=== PATIENT | male | born 1980 | race Hispanic/Latino ===

== ENCOUNTER 2017-03-10 10:43 | Emergency (ER) | payer OTHER ==
[~2017-03-10] VITALS: Ht 182.9 cm; Wt 86.4 kg
[2017-03-10 10:55] VITALS: BP 129/69; PULSE 84; RESP 22; O2SAT 99
--- NOTE | 2017-03-10 11:17 | ED.REPORT ---
HPI-Back Pain Under 40 Date of Service Mar 10, 2017 ED Provider: History of Present Illness: putting cereal bowel away today. pain started, did some stretches, no help. no vomiting. pforte is primary care. uses takes ibuprofen tramadol and robaxin, recently started lisinopril. 02/11, no fall no injury hx of prior back pain. States has an appointment to see pforte. 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 Urine tox in the ER shows positive for meth, opiates and amphetamines 03/10/2017 Alcohol Use: Denies alcohol use Drug Use: In recovery Occupation live with children 14,12 and 8. work at [email or web address]. First work day is wednesday Ambulatory Status Independent Review of Systems Basic Review of Systems Eyes: Vision NL, No discharge Endocrine: No cold intolerance, No heat intolerance, No weight gain, No weight loss Allergy / Immune: No allergy Physical Exam Initial Vital Signs Vital Signs (First) Date Time Temp Pulse Resp B/P Pulse Ox O2 Delivery O2 Flow Rate FiO2 03/10/17 10:55 37.5 84 22 129/69 99 Room Air Initial VS: Reviewed, Vital signs normal Head / Eyes: Atraumatic, Normocephalic, PERRL ENT: Mucous membranes moist, Conjunctiva normal, No scleral icterus Neck: Supple, Non-tender, Full range of motion Respiratory: Breath sounds normal, Clear to auscultation, No respiratory distress Cardiovascular: Heart sounds normal, Intact distal pulses Abdomen / GI: Soft, Non-tender, No guarding, No rebound, No distention Lymphatic: No lymphadenopathy Extremities: Vascular intact, Neuro intact, No swelling, No tenderness Skin: Warm, Dry, No cyanosis Psychiatric: Mood/affect normal, Behavior normal, Normal thought content General/Constitutional: Awake, Alert, No acute distress, Well appearing, Well developed, Well hydrated, Well nourished, Cooperative, Not toxic appearing Back: Atraumatic, Inspection NL, Full range of motion, Painless range of motion Neurologic: Oriented X3, Speech NL, No motor deficits, No sensory deficits Respiratory / Chest: Atraumatic, Breath sounds NL, Breath sounds = bilat, No respiratory distress Cardiovascular: Heart rate NL, Regular rhythm, Heart sounds NL Lower Extremity / Pelvis / MS: Atraumatic, Inspection NL, Full range of motion , No swelling, Non-tender, No erythema, Neurologic intact, Vascular intact Interpretation & Diagnostics Lab Results Interpretation Lab Results Interpretation: Urine tox is p[ositive for meth, opiates and amphetamines 03/10/2017 Urine is clear, no sign of infection Re-Eval/Medical Decision Med Decision/Clinical Course 37 year old male presents with sudden onset of pain this am while puting away his cereal bowl. He reports doping stretches which were not helpful. Normally takes ibuprofen, robaxin and tramadol. Reports he has an appointment with [facility] as it has been some time since he had tramadol. Urine is clear no sign of infection. Exam and hx is reassuring. Patient reports his pain is now a 4/10. Encouraged movement. With excellent relief of pain, unlikely to be a spinal abscess. No sign of bladder infection. Patient continues to state he is in remission from drug use. Urine positive for meth, opiates and amphetamines Discharge & Departure Impression: Primary Impression: Low back pain Chronicity: acute Back pain laterality: left Sciatica presence: without sciatica Qualified Code: M54.5 - Low back pain Additional Impression: Drug abuse Disposition: Home Patient Instructions: Low Back Strain (ED) Additional Instructions: The exam and history is reassuring. The urine does not show any sign of infection. You have had excellent relief with the toradol injection. Please start the ketorolac pills to help. Use 10 mg up to 4 times a day as needed for discomfort. Do not stay in bed or sit in a chair for an extended period of time. Movement is good! Please follow with Dr. Brand if you feel you need tramadol. Robaxin is provided. Referrals: Jean Marie Brand MD (PCP) EDSupervising Provider for APC: Ceasar Ortiz MD copies to: Jean Marie Brand MD, Sue ARNP Mar 10, 2017 11:17
[2017-03-10 12:47] VITALS: BP 125/65; PULSE 88; O2SAT 98
[2017-03-11] MEDS ORDERED: CYCL5TAB PO (07:25)
[2017-03-11] MEDS ORDERED: IBUP800T28 PO (07:25)
== END 2017-03-10 12:45 | disposition home or self-care (01) ==
LOC: SED 11:43
DX: M54.5 Low back pain (principal); F19.10 Other psychoactive substance abuse, uncomplicated; I10 Essential (primary) hypertension; F17.200 Nicotine dependence, unspecified, uncomplicated
CPT/HCPCS: 96372; 99284; J1885

== ENCOUNTER 2017-03-11 05:22 | Emergency (ER) | payer OTHER ==
[~2017-03-11] VITALS: Ht 182.9 cm; Wt 86.4 kg
[2017-03-11 05:33] VITALS: BP 112/73; PULSE 85; RESP 24; O2SAT 99
--- NOTE | 2017-03-11 06:21 | ED.REPORT ---
HPI-Back Pain Under 40 Date of Service Mar 11, 2017 ED Provider: Ceasar Ortiz MD The patient is a 37 year old male with a history of lower back pain, HTN, and drug use presenting to the ED complaining of lower back spasms that began to "flare-up" yesterday when we was going to his car. The patient denies working out, heavy lifting, or bending over at the time of onset. He describes the pain as cramping and admits to feeling pain like this last year, although less severe. The patient admits to diaphoresis. The patient denies dysuria, hematuria , fever, nausea, vomiting, weakness, numbness or tingling in his legs, bowel or bladder incontinence, or saddle anesthesia. Patient was seen in the department for his symptoms yesterday and prescribed Robaxin with minimal relief. Nursing Notes Stated Complaint: LOW BACK PAIN Chief Complaint: Back Pain or Injury Nursing Notes Reviewed: Yes Allergies: Coded Allergies: No Known Allergies (Unverified , 03/10/17) Scheduled PRN Cyclobenzaprine (Cyclobenzaprine) 5 Mg Tablet 5 MG PO TID PRN PRN Spasm Ibuprofen (Ibuprofen) 800 Mg Tablet 800 MG PO TID PRN PRN For Pain General Time Seen by MD: 06:20 Chief Complaint Back pain Hx Obtained From: Patient Arrived By: Walk-in Sudden in Onset?: Yes Onset Occurred: Yesterday Symptom Duration: Since onset (flares up) Caused by: Spontaneous/no mechanism Quality: Aching, Cramping Associated with: Denies: Fever, Hematuria, Incontinence bladder, Nausea, Numbness both low ext, Tingling left lower ext, Tingling right lower ext, Vomiting, Weakness both lower ext Pertinent Negative: Pt denies other symptoms Recent Healthcare: Recent doctor visit Similar Sx Previous: Yes Past Medical History Past Medical History Reports: Hypertension Past Surgical History left knee Smoking History Current Every Day Smoker 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 Urine tox in the ER shows positive for meth, opiates and amphetamines 03/11/2017 Alcohol Use: Denies alcohol use Drug Use: In recovery, Meth Occupation live with children 14,12 and 8. work at [employer]. First work day is wednesday Ambulatory Status Independent Review of Systems -saddle anesthesia Constitutional: Denies: Fever GI: Denies: Nausea, Vomiting Male: Denies Dysuria, Denies Hematuria, Denies Incontinence Musculoskeletal: Reports: Back pain (lower back) Neurologic: Denies: Bladder dysfunction, Bowel dysfunction, Numbness (or tingling. ), Weakness Complete sys rev & neg: except as marked. Physical Exam Initial Vital Signs Vital Signs (First) Date Time Temp Pulse Resp B/P Pulse Ox O2 Delivery O2 Flow Rate FiO2 03/11/17 05:33 37.3 85 24 112/73 99 Room Air Initial VS: Reviewed, Vital signs normal Head / Eyes: Atraumatic, Normocephalic Neck: Supple, Full range of motion Respiratory: No respiratory distress Skin: Warm, Dry General/Constitutional: Awake, Alert Back: Atraumatic, No midline vertebral tend Left lower back tenderness, reproducable no spine tenderness straight leg raise positive 30 degrees Neurologic: Oriented X3, Speech NL Abdomen: Atraumatic, Soft, Non-tender Lower Extremity / Pelvis / MS: Atraumatic Upper Extremity / MS: Atraumatic Interpretation & Diagnostics Lab Results Interpretation Test 03/11/17 07:21 Hold Urine Received (Received) Lab Results Interpretation: Urine tox positive for amphetamines, methamphetamines, and opiates Re-Eval/Medical Decision Med Decision/Clinical Course 37-year-old male presenting with left lower back pain and spasms times several days. He was seen yesterday for similar. He was given Robaxin which she reports helped his symptoms for some time and then they recur when the medication wears off. He has no red flag symptoms. He denies any history of IV drug use. He has no neurological deficits. His pain is reproducible. He does have a positive straight leg raise. Possible sciatica versus musculoskeletal. Given no history of IV drug use and no midline tenderness and no systemic symptoms of infection and resolution with muscle relaxers have very low suspicion for epidural abscess. He felt much better with Toradol. Given the resolution in pain, will discharge home with NSAIDs and muscle relaxer. He will follow-up with his primary doctor. Return precautions given. Re-Evaluation/Progress : Time of Eval: 07:26 Re-Evaluation/Progress Note: Rechecked pt. Discussed plan for discharge with PCP F/U. Patient understands and agrees with plan. All questions addressed at this time. Counseled Regarding: Diagnosis, Lab results, Need for follow-up, When/why to return to ED Discharge & Departure Impression: Primary Impression: Musculoskeletal back pain Additional Impression: Sciatica Laterality: unspecified laterality Qualified Code: M54.30 - Sciatica, unspecified side Disposition: Home All VS Reviewed: Yes Condition: Stable Patient Instructions: Sciatica (ED) Additional Instructions: Thank you for entrusting us with your care today. We did not find a dangerous cause for your symptoms at this time. I believe your pain is due to a muscle injury and sciatica. Take Ibuprofen (up to 800mg every 8 hours) to reduce inflammation. Take Flexeril as prescribed at night to reduce muscle spasm. Do not take this with Robaxin. You make take this during the day as long as you do not drive. Do not drink alcohol with this medication. Follow up with your primary doctor for re-evaluation and to discuss the possibility of physical therapy. Return to the emergency department if you experience weakness, numbness, or tingling in your legs, fevers, vomiting, worsening pain, or any other new or concerning symptoms. Referrals: Jean Marie Brand MD (PCP) Fridaibe Attestation Portions of this note were transcribed by Fabiola Velasquez and Armani Zarate. I, Dr. Ortiz personally performed the history, physical exam and medical decision-making; I reviewed and confirmed the accuracy of the information in the transcribed note. Signed by: Masha Weiner, 03/11/2017 copies to: Jean Marie Brand MD, Ben M MD Mar 11, 2017 06:21 Mar 11, 2017 06:33 FABIOLA VELASQUEZ Mar 11, 2017 07:37
[2017-03-11] MEDS ORDERED: IBUP800T28 PO (07:25)
[2017-03-11] MEDS ORDERED: CYCL5TAB PO (07:25)
[2017-03-12] MEDS ORDERED: BUPR1FIL3 SL (03:37)
== END 2017-03-11 07:41 | disposition home or self-care (01) ==
LOC: SED 05:22
DX: M54.42 Lumbago with sciatica, left side (principal); R61 Generalized hyperhidrosis; I10 Essential (primary) hypertension; F17.200 Nicotine dependence, unspecified, uncomplicated; Z98.890 Other specified postprocedural states
CPT/HCPCS: 96372; 99284; J1885

== ENCOUNTER 2017-03-11 22:48 | Emergency (ER) | payer OTHER ==
[~2017-03-11] VITALS: Ht 182.9 cm; Wt 84.1 kg
[~2017-03-11 22:48] MED LIST: CYCL5TAB PO; IBUP800T28 PO
[2017-03-11 22:50] VITALS: BP 146/82; PULSE 80; RESP 18; O2SAT 98
[2017-03-11] MEDS ORDERED: 0.9% Sodium Chloride 1,000 ML IV ONE (23:34)
--- NOTE | 2017-03-11 23:47 | ED.REPORT ---
HPI-Back Pain Under 40 Date of Service Mar 11, 2017 ED Provider: Deangelo Perez MD This is a 37 year old male with history of lower back pain, hypertension and drug use who presents to the emergency department for lower back pain. Patient has been here 2 times already in the past day for this same issue, which is unchanged and painful. Patient reports having this pain for the last 3 days, which started all the sudden when he was walking to the car. He describes is as lower back pain that is aching, burning, cramping across the whole lower back that does not radiate. It is worse with any sort of movement and the pain is reduced with lying down and "the shot they give me in the hospital." He denies any trauma. He has only had sweating associated with the pain. Denies fever, chills, nausea, vomiting, chest pain, shortness of breath, abdominal pain, pain with urination or diarrhea. Last bowel movement was today. 1 day prior, he was found to have urine positive for meth, opiates and amphetamines here in the emergency department. He has been taking cyclobenzaprine, robaxin and ketorolac without relief. He does admit to using IV drugs in the past and last use of heroin was on 03/10/17. Nursing Notes Stated Complaint: LUMBAR PAIN Chief Complaint: Back Pain or Injury Nursing Notes Reviewed: Yes Allergies: Coded Allergies: No Known Allergies (Unverified , 03/10/17) Scheduled Buprenorphine HCl/Naloxone HCl (Suboxone 8 mg-2 mg Sl Film) 1 Each Film 1 EACH SL BID Scheduled PRN Cyclobenzaprine (Cyclobenzaprine) 5 Mg Tablet 5 MG PO TID PRN PRN Spasm Ibuprofen (Ibuprofen) 800 Mg Tablet 800 MG PO TID PRN PRN For Pain General Time Seen by MD: 23:15 Chief Complaint Lumbar pain Hx Obtained From: Patient Sudden in Onset?: Yes Onset Occurred: 3 days ago Past Medical History Past Medical History Reports: Hypertension Past Surgical History left knee arthroscopy Smoking History Current Every Day Smoker 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 Urine tox in the ER shows positive for meth, opiates and amphetamines 03/11/2017 Alcohol Use: Denies alcohol use Drug Use: In recovery, Meth Occupation live with children 14,12 and 8. work at [employer]. First work day is wednesday Ambulatory Status Independent Review of Systems Constitutional: Denies: Chills, Fever Cardiovascular: Denies: Chest pain GI: Denies: Abdominal pain, Diarrhea, Nausea, Vomiting Male: Denies Dysuria Musculoskeletal: Reports: Back pain, Lumbar pain, Denies: Extremity pain Neurologic: Denies: Bladder dysfunction, Bowel dysfunction, Numbness Complete sys rev & neg: except as marked. Physical Exam Initial Vital Signs Vital Signs (First) Date Time Temp Pulse Resp B/P Pulse Ox O2 Delivery O2 Flow Rate FiO2 03/11/17 22:50 36.8 80 18 146/82 98 03/12/17 02:38 Room Air Initial VS: Reviewed, Vital signs normal Head / Eyes: Atraumatic, Normocephalic ENT: Mucous membranes moist, Conjunctiva normal Respiratory: Breath sounds normal, Clear to auscultation, No respiratory distress Cardiovascular: Regular rate & rhythm, Heart sounds normal, Intact distal pulses Abdomen / GI: Soft, Non-tender, No guarding, No rebound, No distention Extremities: Vascular intact, Neuro intact, No swelling, No tenderness Skin: Warm, Dry, No cyanosis Psychiatric: Mood/affect normal, Normal thought content Patient unable to make effort to turn to inspect back due to pain. Straight leg raise negative. Hypertonic paraspinal musculature palpated with lumbar tenderness. Interpretation & Diagnostics Lab Results Interpretation Result Diagram: 03/11/17225403/11/175 Test 03/11/17 22:55 White Blood Count 9.5th/mm3 (3.8-10.1) Red Blood Count 4.24mil/mm3 (4.40-5.80) Hemoglobin 12.1g/dL (13.8-17.2) Hematocrit 34.8% (41.0-50.0) Mean Corpuscular Volume 82.1fL (81-100) Mean Corpuscular Hemoglobin 28.5pg (27.0-35.0) Mean Corpuscular Hemoglobin Concent 34.8% (32.0-37.0) Red Cell Distribution Width 12.9% (12.3-15.4) Platelet Count 289bil/L (150-400) Neutrophils (%) (Auto) 63.2% (40-74) Lymphocytes (%) (Auto) 21.6% (14-46) Monocytes (%) (Auto) 14.0% (4-12) Eosinophils (%) (Auto) 0.9% (0-5) Basophils (%) (Auto) 0.1% (0-3) Erythrocyte Sedimentation Rate 44mm/hr (0-15) Hold Purple Top Tube Received (Received) Hold Blue Top Tube Received (Received) Sodium Level 137mEq/L (134-144) Potassium Level 4.1mEq/L (3.5-5.2) Chloride Level 99mEq/L (97-108) Carbon Dioxide Level 25mmol/L (18-29) Blood Urea Nitrogen 20mg/dL (6-20) Creatinine 0.77mg/dL (0.76-1.27) Estimat Glomerular Filtration Rate 120mL/min (>59) Glucose Level 90mg/dL (60-99) Calcium Level 8.7mg/dL (8.5-10.1) Total Bilirubin 0.6mg/dL (0.0-1.2) Aspartate Amino Transf (AST/SGOT) 21U/L (0-50) Alanine Aminotransferase (ALT/SGPT) 14U/L (0-44) Alkaline Phosphatase 99U/L (25-150) C-Reactive Protein 15.6mg/dL (0.0-0.5) Total Protein 7.0g/dL (6.4-8.4) Albumin 3.9g/dL (3.4-5.0) Hold [place] Top Tube Received (Received) Lab Results Interpretation: Mildly elevated ESR and CRP, normal white blood count Re-Eval/Medical Decision Med Decision/Clinical Course This is a 37 year old male with history of lower back pain, hypertension and drug use who presents to the emergency department for lower back pain. He has been here two other times in the past day for the same. Ketorolac IM seemed to have help him temporarily in the past, but otherwise PO ketorolac, cyclobenzaprine and robaxin have been unhelpful for him. Concern is for epidural abscess given drug history and urine positive for meth, heroin and amphetamines earlier today. CBC and CMP unremarkable. ESR 44, CRP 15.5. Lumbar CT with contrast did not show any acute pathology or evidence of epidural abscess. Patient's last use of heroin was 03/10/17. Tramadol was minimally helpful for his pain. He is likely suffering increased pain with withdrawal of his opiates. The cause of his coon is not identifiable on imaging. Patient given subutex in the ED. He will need close follow up outpatient with [facility] for ongoing opioid withdrawal help. Counseled Regarding: Diagnosis, Lab results, Need for follow-up, When/why to return to ED Discharge & Departure Impression: Primary Impression: Musculoskeletal back pain Additional Impression: Opioid dependence with withdrawal Disposition: Home All VS Reviewed: Yes Condition: Stable Patient Instructions: Acute Low Back Pain (ED) Additional Instructions: Recommend Suboxone (buprenorphine/naloxone) 02/03 film, 1 dissolved orally twice a day, #10 prescribed. This medicine will help with pain and help with heroin withdrawal symptoms. Do not use any methamphetamine or heroin with this medication. Call [phone] for a priority appointment at [facility]. Return to the emergency room if she have increasing back pain, especially if you start to run a fever or have more pain radiating down the legs. Referrals: Jean Marie Brand MD (PCP) Attending Statement The patient was seen and examined together with Dr. Garner, and I agree with the history, exam and plan as outlined in the note above. copies to: Jean Marie Brand MD, Malik A DO Mar 11, 2017 23:46 Deangelo Perez MD Mar 12, 2017 03:36
[2017-03-11 23:49] LABS: BASOPHILS % (AUTO) 0.1 % (0-3); EOSINOPHILS % (AUTO) 0.9 % (0-5); Mean Corpuscular Hemoglobin 28.5 pg (27.0-35.0); Mean Corpuscular Volume 82.1 fL (81-100); NEUTROPHILS % (AUTO) 63.2 % (40-74); Platelet Count 289 bil/L (150-400)
[2017-03-12 00:11] LABS: ERYTHROCYTE SEDIMENTATION RATE 44 mm/hr (0-15)
[2017-03-12] MEDS ORDERED: Buprenorphine 2 mg SL Tablet SL ONE (01:45)
[2017-03-12 02:38] VITALS: BP 138/84; PULSE 84; RESP 16; O2SAT 98
[2017-03-12] MEDS ORDERED: BUPR1FIL3 SL (03:37)
[2017-03-12 04:18] VITALS: BP 152/74; PULSE 82; RESP 16; O2SAT 98
--- NOTE | 2017-03-12 09:42 | DRSVH ---
PROCEDURE: CT LUMBAR SPINE WITH CONTRAST ([id number]) INDICATIONS: lumbar pain, evaluate for epidural abscess TECHNIQUE: After the administration of intravenous Isovue contrast, 3 mm thick sections acquired through the lev els of interest. Sagittal and coronal reformats were then constructed. For radiation dose reduction , the following was used: automated exposure control. COMPARISON: None. FINDINGS: Image quality: Excellent. There is trace retrolisthesis of L3 on L4, L4 and L5 and mild retrolisthesis of L5 on S1. Large sever e disc and foraminal narrowing is present at L5-S1. There are no visualized fractures or dislocations. Visualized portions of the intra-abdominal content s demonstrate mild hepatomegaly. No visualized abnormal enhancement within the soft tissues. No grossly visualized mass along the spin al canal. IMPRESSION: 1. Degenerative changes most prominent at L5-S1. 2. No visualized abscess within the soft tissues or visualized mass along the spinal canal. If clinic al concern persists, MRI may be obtained. Dictated by: Minal Carrillo M.D. on 03/12/2017 at 8:21 Approved by: Minal Carrillo M.D. on 03/12/2017 at 9:40
== END 2017-03-12 04:15 | disposition home or self-care (01) ==
LOC: SED 22:48
DX: M54.5 Low back pain (principal); F11.23 Opioid dependence with withdrawal; R61 Generalized hyperhidrosis; I10 Essential (primary) hypertension; F17.200 Nicotine dependence, unspecified, uncomplicated; Z98.890 Other specified postprocedural states
CPT/HCPCS: 36415; 72132; 80053; 85025; 85651; 86140; 87040; 87077; 96361; 96374; 96376; 99285; J1885; J7030; Q9967

== ENCOUNTER 2017-03-15 23:56 | Emergency (ER) | payer OTHER ==
[~2017-03-15] VITALS: Ht 182.9 cm; Wt 87.0 kg
[~2017-03-15 23:56] MED LIST changes: +BUPR1FIL3 SL
[2017-03-16 00:21] VITALS: BP 132/85; PULSE 100; RESP 24; O2SAT 98
--- NOTE | 2017-03-16 02:43 | ED.REPORT ---
HPI-Back Pain Under 40 Date of Service Mar 16, 2017 ED Provider: Sharath Helm MD Pt is a 37 y/o male with a history of low back pain, hypertension, and drug use presenting to the ED complaining of back pain. He states that he has a degenerative disease to his L5 that is causing his severe back pain. Pt describes his pain as stabbing "spasms" that is exacerbated by movement. Additional symptoms include difficulty sleeping and numbness to his right leg. Pt denies bladder or bowel incontinence. He states that he wants Suboxone to get off other drugs, and that he has an appointment tomorrow with [facility] for his chronic back pain. Pt has been to the ED four times in five days for the same symptoms. Nursing Notes Stated Complaint: BACK PAIN Chief Complaint: Back Pain or Injury Nursing Notes Reviewed: Yes Allergies: Coded Allergies: No Known Allergies (Unverified , 03/10/17) Scheduled Buprenorphine HCl/Naloxone HCl (Suboxone 8 mg-2 mg Sl Film) 1 Each Film 1 EACH SL BID Scheduled PRN Cyclobenzaprine (Cyclobenzaprine) 5 Mg Tablet 5 MG PO TID PRN PRN Spasm Ibuprofen (Ibuprofen) 800 Mg Tablet 800 MG PO TID PRN PRN For Pain General Time Seen by MD: 02:43 Chief Complaint Back pain Hx Obtained From: Patient Arrived By: Walk-in Sudden in Onset?: No Onset Occurred: 5 days ago Past Medical History Past Medical History Chronic back pain Reports: Hypertension Past Surgical History left knee arthroscopy Smoking History Current Every Day Smoker 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 Urine tox in the ER shows positive for meth, opiates and amphetamines 03/11/2017 Alcohol Use: Denies alcohol use Drug Use: In recovery, Meth Occupation live with children 14,12 and 8. work at [employer]. First work day is wednesday Ambulatory Status Independent Review of Systems Difficulty sleeping Constitutional: Denies: Chills, Fever Respiratory: Denies: Non-productive cough, Prod cough, clear, Shortness of breath Cardiovascular: Denies: Chest pain GI: Denies: Abdominal pain Male: Denies Incontinence Musculoskeletal: Reports: Back pain Neurologic: Reports: Numbness (to R leg ) Complete sys rev & neg: except as marked. Physical Exam Initial Vital Signs Vital Signs (First) Date Time Temp Pulse Resp B/P Pulse Ox O2 Delivery O2 Flow Rate FiO2 03/16/17 00:21 38.2 100 24 132/85 98 Room Air Initial VS: Reviewed Head / Eyes: Atraumatic, Normocephalic Neck: Supple, Full range of motion Abdomen / GI: Soft, Non-tender Extremities: Vascular intact, Neuro intact, No swelling, No tenderness Skin: Warm, Dry, No cyanosis Psychiatric: Mood/affect normal, Behavior normal, Normal thought content General/Constitutional: Awake, Alert Rigid Back: Atraumatic Low back spasms Neurologic: Oriented X3, Speech NL Respiratory / Chest: Atraumatic, Breath sounds NL, Breath sounds = bilat, No respiratory distress Cardiovascular: Heart rate NL, Regular rhythm, Heart sounds NL Re-Eval/Medical Decision Med Decision/Clinical Course 37-year-old IV drug abuser presents for the fourth time this week with intermittent back pain. He is due for reevaluation later today at [facility]. He had responded reasonably well to a starter prescription of Suboxone, although he was using it at three strips daily instead of two as prescribed. Unable to provide additional Suboxone at this point and he has an appointment with her provider today. Single dose of Decadron, Toradol, and lorazepam for muscle spasm given. Discharged in stable condition. He is referred to his doctor for physical therapy evaluation and treatment. Source of Hx: Old records Re-Evaluation/Progress : Time of Eval: 02:43 Re-Evaluation/Progress Note: Discussed plan for discharge. Patient understands and agrees with plan. F/U instructions and RTER warnings given. All questions addressed at this time. Counseled Regarding: Diagnosis, Lab results, Need for follow-up, When/why to return to ED Discharge & Departure Impression: Primary Impression: Low back pain Chronicity: chronic Back pain laterality: unspecified Sciatica presence: unspecified whether sciatica present Qualified Code: M54.5 - Low back pain Additional Impressions: Muscle spasm Opioid dependence with withdrawal Disposition: Home All VS Reviewed: Yes Condition: Stable Patient Instructions: Low Back Strain (ED) Additional Instructions: Follow-up at [facility] today as scheduled. Continue the prescribed medicines from Dr. Sutton. You need a physical therapy referral in order begin to deal with your back pain. Contact your doctor by phone today. They can make that referral without seeing you generally. Referrals: Jean Marie Brand MD (PCP) Fareed, Shashi R MD Scribe Attestation Portions of this note were transcribed by Melissa Moser. I, Dr. Helm, personally performed the history, physical exam and medical decision-making; I reviewed and confirmed the accuracy of the information in the transcribed note. copies to: Shashi Guerrier MD; Jean Marie Brand MD, Christopher W MD Mar 16, 2017 02:43 Melissa Moser Mar 16, 2017 02:53
[2017-03-16] MEDS ORDERED: LORazepam 2 mg Tablet PO ONE (02:55)
[2017-03-16] MEDS ORDERED: Dexamethasone 20 mg/2 mL Oral Solution PO ONE (02:55)
[2017-03-16 03:44] VITALS: BP 126/69; PULSE 85; RESP 18; O2SAT 98
== END 2017-03-16 03:45 | disposition home or self-care (01) ==
LOC: SED 23:56
DX: M54.5 Low back pain (principal); M62.830 Muscle spasm of back; F11.23 Opioid dependence with withdrawal; I10 Essential (primary) hypertension; F17.200 Nicotine dependence, unspecified, uncomplicated
CPT/HCPCS: 96372; 99283; J1885